=== PATIENT | male | born 1990 | race Caucasian/White ===

== ENCOUNTER 2023-03-03 08:00 | Outpatient (NON) | payer OTHER, SELFPAY | END 2023-03-03 08:01 | disposition home or self-care (01) | PROVIDERS: PCP Nurse Practitioner Family; Visit Provider Internal Medicine Gastroenterology | DX: R13.10 Dysphagia, unspecified (principal) | CPT/HCPCS: 88305; 88313; 88342 ==

== ENCOUNTER 2023-03-03 10:39 | Day surgery (SDC) | payer OTHER, SELFPAY ==
[2023-01-20 10:26] VITALS: BMI 28.2
--- NOTE | 2023-03-02 12:35 | PM.HPGS ---
History of Present Illness History of Present Illness Consent: Risks, benefits, and alternatives have been discussed and questions answered. Patient agrees to proceed with procedure. Chief complaint: Dysphagia Narrative: Jackson Holden is a 32 year old male referred for investigation of dysphagia. He has difficulty swallowing pasta and breads. Review of Systems Review of Systems: All systems reviewed & are unremarkable except as noted in HPI and below PMFSH Past Medical History Medical History Allergic rhinitis Asthma Social History Social History Smoking status: Never smoker Second hand tobacco smoke exposure: No Alcohol intake: current Drinks per week: 6 Substance use: never Substance use type: does not use Living arrangements: with family Spiritual care concerns: No Meds Home Medications and Allergies Home Medications Medication Instructions Recorded Confirmed Type epinephrine 0.3 mg/0.3 mL 0.3 mg (0.3 mL) IM ONCE #2 ea 12/13/19 03/03/23 Rx injection, auto-injector albuterol sulfate 90 mcg/actuation 2 puff inhalation Q4-6H PRN 06/24/21 03/03/23 Rx aerosol inhaler (Ventolin HFA) shortness of breath or wheezing #8.5 grams clotrimazole-betamethasone 1 1 applic topical BID #15 grams 06/15/22 03/03/23 Rx %-0.05 % topical cream Allergies Allergy/AdvReac Type Severity Reaction Status Date / Time nut - unspecified Allergy Severe Anaphylactic Verified 03/03/23 11:27 Shock peanut Allergy Severe Anaphylactic Verified 03/03/23 11:27 Shock Sulfa (Sulfonamide Allergy Unknown Unknown Verified 02/15/23 08:54 Antibiotics) Exam Const: General: alert Orientation/consciousness: patient oriented x3 Resp: Auscultation: clear to auscultation bilaterally Cardio: Rhythm: regular rhythm GI: GI Palp: Yes Soft to palpation and No Tenderness to palpation present (GI) Neuro: General: patient oriented x3 Assessment and Plan Assessment and plan (1) Dysphagia: Code(s): R13.10 - Dysphagia, unspecified Status: Acute Assessment and Plan: EGD with possible biopsy or dilatation or cautery.
--- NOTE | 2023-03-03 07:30 | P.PNAN_ITS ---
Anes - Initial Pre Proc Eval Procedure: Operation Date: 03/03/23 12:30 Proposed Procedures p Esophagogastroduodenoscopy - Ismael Wang MD Date/Time: 03/03/23 07:30 Surgeon: Ismael Wang MD Pre Op Diagnosis: Dysphagia Patient Data Age: 32 Gender: M Height: 1.75 m Weight: 87 kg Allergies Allergy/AdvReac Type Severity Reaction Status Date / Time nut - unspecified Allergy Severe Anaphylactic Verified 03/03/23 11:27 Shock peanut Allergy Severe Anaphylactic Verified 03/03/23 11:27 Shock Sulfa (Sulfonamide Allergy Unknown Unknown Verified 02/15/23 08:54 Antibiotics) Home Medications Medication Instructions Recorded Confirmed Type epinephrine 0.3 mg/0.3 mL 0.3 mg (0.3 mL) IM ONCE #2 ea 12/13/19 03/03/23 Rx injection, auto-injector albuterol sulfate 90 mcg/actuation 2 puff inhalation Q4-6H PRN 06/24/21 03/03/23 Rx aerosol inhaler (Ventolin HFA) shortness of breath or wheezing #8.5 grams clotrimazole-betamethasone 1 1 applic topical BID #15 grams 06/15/22 03/03/23 Rx %-0.05 % topical cream Patient hx anesthesia problems: none Family hx anesthesia problems: none Results Review: All pre-operative results and documents have been reviewed as part of the pre- operative evaluation. [facility], [facility] Past Medical History Medical History Allergic rhinitis Asthma Social History Social History Smoking status: Never smoker Second hand tobacco smoke exposure: No Alcohol intake: current Drinks per week: 6 Substance use: never Substance use type: does not use Living arrangements: with family Spiritual care concerns: No Anes - Eval Final PreProcedure Day of Procedure 03/03/23 07:30 Patient weight: overweight Heart: regular rate and rhythm Lungs: clear to auscultation Airway: Mallampati scale class II Neurological: alert and oriented Last oral intake: >/= 8 hours ASA classification: II Emergent: no Anesthetic plan: proceed Anesthesia type and monitoring: general GIVS and standard monitoring Results Review: All pre-operative results and documents have been reviewed as part of the pre- operative evaluation. Informed Consent: The patient's anesthetic plan and its attendant risks and benefits were discussed with the patient/family/POA. Questions were solicited and answers provided to the satisfaction of the patient/family/POA.
[2023-03-03 11:29] VITALS: BP 122/78; PULSE 55; RESP 20; TEMP 37; O2SAT 100
[2023-03-03] MEDS: LACTATED RINGERS 1,000 ML 150 ML IV CONT (11:36)
[2023-03-03 12:55] VITALS: BP 114/65; PULSE 55; RESP 16; O2SAT 100
[2023-03-03 13:05] VITALS: BP 134/87; PULSE 56; RESP 18; O2SAT 100
--- NOTE | 2023-03-03 13:09 | WPDANESPN ---
Anes - Prog Note Post-Op Date/Time: 03/03/23 13:09 Cardiovascular status: normal Respiratory status: normal Airway patency: baseline Mental status: baseline Post-Op hydration status: normal Vital Signs: Last Vital Signs Temp 37.0 C 03/03/23 11:29 Pulse 55 L 03/03/23 12:55 Resp 16 03/03/23 12:55 BP 114/65 03/03/23 12:55 Pulse Ox 100 03/03/23 12:55 O2 Del Method Room Air 03/03/23 12:55 Pain Score (VAS): 0 I/O: Intake & Output 03/02/23 03/03/23 03/03/23 23:59 07:59 15:59 Intake Total 400 Balance 400 Post-procedural complaints: none Patient Feedback: Patient satisfied with anesthetic care. Other Findings: Patient vital signs back to baseline. Patient denies nausea and vomiting. Patient's pain under control. Patient OK for discharge.
[2023-03-03 13:15] VITALS: BP 137/52; PULSE 52; RESP 18; O2SAT 100
== END 2023-03-03 13:23 | disposition home or self-care (01) ==
PROVIDERS: PCP Nurse Practitioner Family; Visit Provider Internal Medicine Gastroenterology
PROC: 0DJ08ZZ Inspection of Upper Intestinal Tract, Via Natural or Artificial Opening Endoscopic (ICD-10-PCS; CPT 43235; principal; 2023-03-03 12:30)
DX: K22.2 Esophageal obstruction (principal); R13.19 Other dysphagia; K21.00 Gastro-esophageal reflux disease with esophagitis, without bleeding
CPT/HCPCS: 43249; 43239

== ENCOUNTER 2023-11-20 14:23 | Emergency (ER) | payer OTHER, SELFPAY ==
[2023-11-20 14:38] VITALS: BP 124/76; PULSE 62; RESP 16; TEMP 37.1; O2SAT 100
[2023-11-20 15:14] LABS: Glucose Point of Care 230 mg/dl (65-105)
[2023-11-20 15:20] VITALS: BP 128/65; PULSE 63
--- NOTE | 2023-11-20 15:20 | ED.DIZZY ---
HPI - Dizziness General Chief Complaint: Dizziness Stated Complaint: Dizziness/Light Headed Time Seen by Provider: 11/20/23 14:45 Source: patient, RN notes reviewed and old records reviewed Mode of arrival: ambulatory Limitations: no limitations History of Present Illness HPI Narrative: 33 year old male who presents to [facility] care with complaints of episode of dizziness/lightheadedness which occurred today when he was arrising from bed. He reports that he became dizzy and light headed and became soaked in sweat, became hot then cold. stated she had him lay back down and gave him some orange juice and cookies thinking maybe it was blood sugar. Patient denies any recent illness, no respiratory symptoms, sore throat or any ear pain. Patient reports that he did drink some alcohol last night but not to excess. Patient does admit to similar near syncopal episode about 5 years ago and followed up with his doctor at that time with no further testing done. MD elicited complaint: dizziness, lightheadedness and near syncope Pertinent past history: other (similar episode about 5 years ago) Onset (ago): hour(s) (about 1.5 hours ago) Description: lightheadedness and near-syncope Context: change in body position History of similar symptoms: Yes Related Data Allergies Allergy/AdvReac Type Severity Reaction Status Date / Time nut - unspecified Allergy Severe Anaphylactic Verified 03/03/23 11:27 Shock peanut Allergy Severe Anaphylactic Verified 03/03/23 11:27 Shock Sulfa (Sulfonamide Allergy Unknown Unknown Verified 02/15/23 08:54 Antibiotics) Review of Systems Review of Systems: CONSTITUTIONAL: Denies fever, chills, or sweats. EYES: Denies visual changes, redness, or discharge. ENT: Denies rhinorrhea, congestion, sore throat, or otalgia. CARDIOVASCULAR: Denies chest pain, palpitations, or edema. RESPIRATORY: Denies cough or dyspnea. GASTROINTESTINAL: Denies abdominal pain, nausea, vomiting, or diarrhea. GENITOURINARY: Denies dysuria or hematuria. SKIN: Denies rash or itching. MUSCULOSKELETAL: Denies back pain, joint pain, or myalgia. NEUROLOGIC: Denies headache, numbness, positive for episodes of dizziness and feeing lightheaded today with weakness,diaphoresis, near syncope PSYCHIATRIC: Denies anxiety or depression. , All systems reviewed & are unremarkable except as noted in HPI and below PMFSH Past Medical History Medical History (Updated 11/22/23 @ 00:01 by Radha Prince) Allergic rhinitis Asthma Dysphagia Surgical History Surgical History (Updated 11/21/23 @ 22:03 by Kaley Finn NP) History of tonsillectomy Social History Social History Smoking status: Never smoker Second hand tobacco smoke exposure: No Alcohol intake: current Drinks per week: 6 Substance use: never Substance use type: does not use Living arrangements: with family Spiritual care concerns: No Comments At time of signature, agree with nursing past medical, surgical, social and family history. There is no relevant family history pertinent to the presenting complaint Exam Narrative: GENERAL: Well-appearing, well-nourished, and in no acute distress. HEAD: Normocephalic, atraumatic. EYES: PERRLA and EOMI.no nystagmus noted ENT: Nares clear, no rhinorrhea or epistaxis. Mucous membranes moist. NECK: Supple.no lymphadenopathy CHEST: Clear to auscultation. No respiratory distress.SAO2 200% on room air HEART: Regular rate and rhythm. No murmur heard. Normal peripheral pulses,. ABDOMEN: Soft, nontender, nondistended, normal active bowel sounds. EXTREMITIES: Normal range of motion. No edema. moves all extremities on own power no numbness or tingling voiced to extremities or to face. SKIN: Warm, dry, no rash. NEURO: No focal deficits. Alert and oriented x3.cranial nerves intact without deficit, noted dizziness when changing from lying to sitting position see orthostatic re
[2023-11-20 15:21] VITALS: PULSE 65
[2023-11-20 15:22] VITALS: BP 125/66; PULSE 84
--- NOTE | 2023-11-20 15:23 | PC.NURSE ---
prior to ortho and glucose check had hit call button and stated felt like was going to pass out. moved to rm 1. said was feeling better.
--- NOTE | 2023-11-20 15:24 | PC.NURSE ---
requested [facility] er for further evaluation. declined ems and will go by private car
--- NOTE | 2023-11-20 15:27 | PC.NURSE ---
provider to provider report in progress.
--- NOTE | 2023-11-20 15:38 | ECG_ITS ---
[facility] [address] Test Date: 2023-11-20 Pat Name: Jackson Holden Department: Room: Gender: M [employer]: : 1990 Requested By: Kaley Araya Order Number: [id number] Reading MD: Oscar Quiñones M.D. Measurements Intervals [place] Rate: P: CA: QRS: QRSD: T: QT: QTc: Interpretive Statements POOR PHOTOCOPY QUALITY OF ECG VERY DIFFICULT INTERPRETATION GROSSLY NORMAL ECG Electronically Signed On 12-02-2023 08:48:59 CDT by Oscar Quiñones M.D.
== END 2023-11-20 15:51 | disposition short-term general hospital (02) ==
PROVIDERS: Emergency Provider Registered Nurse
DX: R42 Dizziness and giddiness (principal); R55 Syncope and collapse; J45.909 Unspecified asthma, uncomplicated
CPT/HCPCS: 82948; 93005; 99213; G0463

== ENCOUNTER 2025-05-06 11:32 | Outpatient (CLI) | payer OTHER, SELFPAY ==
--- NOTE | ~2025-05-06 | XR_ITS ---
EXAMINATION: XR hip BI wo pelvis, 05/06/2025 11:50 AGITATOR OPERATOR HISTORY: pain in right hip and left hip x 3 months COMPARISON: No comparisons available. Findings: No acute fracture or malalignment. No significant degenerative changes. Soft tissues unremarkable. Impression: No acute fracture or malalignment. Reviewed, dictated and finalized at location P. ATOR OPERATOR Impression: No acute fracture or malalignment.
== END 2025-05-06 11:33 | disposition home or self-care (01) ==
PROVIDERS: PCP Physician Assistant; Visit Provider Physician Assistant
DX: M25.551 Pain in right hip (principal); M25.552 Pain in left hip
CPT/HCPCS: 73521